=== PATIENT | male | born 1995 | race Hispanic/Latino ===

== ENCOUNTER 2024-02-28 07:09 | Emergency (ER) | payer SELFPAY ==
[2024-02-28 07:15] VITALS: BP 135/93; PULSE 74; RESP 18; TEMP 36.3; O2SAT 100
--- NOTE | 2024-02-28 08:58 | PC.NURSE ---
pt left d/t wait time
== END 2024-02-28 10:22 | disposition left against medical advice (07) ==
LOC: ANHED 09:03
PROVIDERS: PCP Internal Medicine Infectious Disease
DX: M54.2 Cervicalgia (principal); M54.9 Dorsalgia, unspecified
CPT/HCPCS: 99199

== ENCOUNTER 2024-08-09 14:12 | Outpatient (CLI) | payer SELFPAY ==
--- OUTSIDE RECORDS SUMMARY | 2024-08-09 15:30 | XMS_ITS | Clinical Summary ---
Author Organization [facility] Address [address] [place] [id number] Care Team Providers Care Brick Veneer Maker Name Role Phone No, Physician Primary Care Provider [phone] Allergies No known active allergies Medications meloxicam (MOBIC) 7.5 mg tablet Take 1 tablet (7.5 mg total) by mouth daily 20 tablet 4 Active lidocaine-menth ol 4-1 % adhesive patch,medicated Apply 1 patch topically daily 12 patch 4 Active Social History Tobacco Use Types Packs/Day Years Used Date Smoking Tobacco: Never Assessed Personal Safety Answer Date Recorded Have you ever been in or are you currently in a harmful physical or emotional relationship or is someone making you feel afraid or unsafe? Denies 03/20/2024 Sex and Gender Information Value Date Recorded Sex Assigned at Not on file Legal Sex Male 6:05 PM CDT Gender Identity Not on file Sexual Orientation Not on file Last Filed Vital Signs Vital Sign Reading Time Taken Comments Blood Pressure 118/83 03/20/2024 3:54 AM HEAD START ASSISTANT TEACHER Pulse 67 03/20/2024 3:54 AM HEAD START ASSISTANT TEACHER Temperature 36.9 C (98.5 F) 03/20/2024 3:54 AM HEAD START ASSISTANT TEACHER Respiratory Rate 16 03/20/2024 3:54 AM HEAD START ASSISTANT TEACHER Oxygen Saturation 98% 03/20/2024 3:54 AM HEAD START ASSISTANT TEACHER Inhaled Oxygen Concentration - - Weight 83.9 kg (185 lb) 03/20/2024 5:28 AM HEAD START ASSISTANT TEACHER Height 167.6 cm (5' 6 ) 03/20/2024 5:28 AM HEAD START ASSISTANT TEACHER Body Mass Index 29.86 03/20/2024 5:28 AM HEAD START ASSISTANT TEACHER Plan of Treatment Health Maintenance Due Date Last Done Comments Depression Screening 1995 Hepatitis C Screening 1995 Varicella Vaccines (1 of 2 - 13+ 2-dose series) 2008 Hepatitis B Screening 2013 Regular Well Visit/Exam 18-64 2013 Pneumococcal vaccine <65 (1 of 2 - PCV) 2014 Covid-19 Vaccine (3 - season) 2023 09/23/2020, 09/02/2020 Influenza Vaccine (#1) 2023 , 08/19/2018, 02/04/2017, Additional history exists DTaP/Tdap/Td Vaccine (2 - Td or Tdap) 06/19/2025 06/20/2015 HPV Vaccines Aged Out No longer eligi ble based on patient's age to complete this topic Insurance [facility] [facility] Care Teams Brick Veneer Maker Relationship Specialty Start Date End Date No, Physician PCP - General 09/15/23
--- OUTSIDE RECORDS SUMMARY | 2024-08-09 15:30 | XMS_ITS | Referral Summary ---
Author Organization [facility] Address [address] [place] [phone] Care Team Providers Care Refund Clerk Name Role Phone No, Physician Primary Care Provider Allergies No known active allergies Medications meloxicam [...] Comments Blood Pressure 118/83 03/20/2024 3:54 AM SALES DEVELOPMENT ASSOCIATE Pulse 67 03/20/2024 3:54 AM SALES DEVELOPMENT ASSOCIATE Temperature 36.9 C (98.5 F) 03/20/2024 3:54 AM SALES DEVELOPMENT ASSOCIATE Respiratory Rate 16 03/20/2024 3:54 AM SALES DEVELOPMENT ASSOCIATE Oxygen Saturation 98% 03/20/2024 3:54 AM SALES DEVELOPMENT ASSOCIATE Inhaled Oxygen Concentration - - Weight 83.9 kg (185 lb) 03/20/2024 5:28 AM SALES DEVELOPMENT ASSOCIATE Height 167.6 cm (5' 6 ) 03/20/2024 5:28 AM SALES DEVELOPMENT ASSOCIATE Body Mass Index 29.86 03/20/2024 5:28 AM SALES DEVELOPMENT ASSOCIATE Plan of Treatment Not on file Insurance [facility] Care Teams Refund Clerk Relationship Specialty Start Date End Date No, Physician PCP - General 09/15/23
--- OUTSIDE RECORDS SUMMARY | 2024-08-09 15:30 | XMS_ITS | Clinical Summary ---
Author Organization [facility] Address [address] [place] [address] Care Team Providers Care Zipper Machine Operator Name Role Phone Unavailable Primary Care Provider Unavailabl e Source Comments [facility],non-owned Affiliates and Associated Physician Practices is amultiple site organization consisting of ambulatory clinics and hospital sitesin [place], [place], [place]. This disclosure is being madepursuant to the Care Everywhere program and may not contain all information available regarding this patient. Last updated 18.[facility] Social History Tobacco Use Types Packs/Day Years Used Date Smoking Tobacco: Some Days Alcohol Use Standard Drinks/Week Comments Yes 0 (1 standard drink = 0.6 oz pur e alcohol) occasional Sex and Gender Information Value Date Recorded Sex Assigned at Not on file Legal Sex Male 11:46 PM CDT Gender Identity Not on file Sexual Orientation Not on file Last Filed Vital Signs Vital Sign Reading Time Taken Comments Blood Pressure 171/64 09/11/2018 11:59 PM CDT Pulse 70 09/11/2018 11:59 PM CDT Temperature 36.6 C (97.9 F) 09/11/2018 11:59 PM CDT Respiratory Rate 18 09/11/2018 11:59 PM CDT Oxygen Saturation 99% 09/11/2018 11:59 PM CDT Inhaled Oxygen Concentration - - Weight 81.6 kg (180 lb) 09/11/2018 11:59 PM CDT Height 167.6 cm (5' 6 ) 09/11/2018 11:59 PM CDT Body Mass Index 29.05 09/11/2018 11:59 PM CDT Plan of Treatment Health Maintenance Due Date Last Done Comments HIV SCREENING 2010 HEPATITIS C SCREENING 02/26/2013 DTAP/TDAP/TD VACCINES (1 - Tdap) 2014 HEPATITIS B VACCINE (1 of 3 - 19+ 3-dose series) 2014 COVID-19 VACCINE (1 - 2023-2 5 season) 2023 DEPRESSION SCREENING 04/13/2024 INFLUENZA VACCINE (Season Ended) 2024 08/19/2018, 12/22/2016 ZOSTER VACCINE (1 of 2) 2045 HIB VACCINE Aged Out No longer eligi ble based on patient's age to complete this topic HPV VACCINE Aged Out No longer eligi ble based on patient's age to complete this topic MENINGOCOCCAL (Group B) VACCINE SHARED DECISION-MAKING Aged Out No longer eligible based on patient's age to complete this topic MENINGOCOCCAL GROUPS A/C/Y/W VACCINE Aged Out No longer eligible b ased on patient's age to complete this topic PNEUMOCOCCAL VACCINE Aged Out No long er eligible based on patient's age to complete this topic Insurance [facility] [employer]Y [employer]
--- OUTSIDE RECORDS SUMMARY | 2024-08-09 15:30 | XMS_ITS | Clinical Summary ---
Author Organization 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 Gender Identity Not on file Sexual Orientation Not on file Plan of Treatment Health Maintenance Due Date Last Done Comments Hepatitis C Virus (HCV) Screening 1995 TdaP Immunization 1995 Hepatitis B Immunization (1 of 3 - 19+ 3-dose series) 2014 Influenza Immunization (#1) 2023 SARS-COV-2 Immunization (2023- season) 2023 Respiratory Syncytial Virus (RSV) Immunization (Adult) (1 - 1-dose 75+ series) 2070 Meningococcal Immunization (ACWY) Aged Out No longer eligible based on patient's age to complete this topic Pneumococcal Immunization Combined Aged Out No longer eligible based on patient's age to complete this topic Rotavirus Immunization Aged Out No lo nger eligible based on patient's age to complete this topic
--- OUTSIDE RECORDS SUMMARY | 2024-08-09 15:30 | XMS_ITS | Data Portability ---
Author Organization [facility] Address [address] [facility] [address] Assessment Encounter Date Assessment Date Assessment LastModified by Organization Details LastModified Time 11/04/2023 11/04/2023 It is unclear whether he has asthma or occupational reversible airway disease. oajao Not available 11/04/2023 18:22:08 12/21/2023 12/21/2023 It is unclear whether he has asthma or occupational reversible airway disease. oajao Not available 12/21/2023 15:49:04 Plan of Treatment Reminders Order Date Submit Date Provider Last Modified By Organization Details Last Modified Time Details Appointments None recorded. Lab TSH, ultra-sens itive, serum 2023 024 [facility], [address] [facility] [address], [address], [place], [address], 4 10:17:50 vitamin B12, serum 2023 024 [facility], [address] [address], [address], [place], [address], 4 10:17:49 influenza virus A + B + SARS-CoV-2 (COVID19) Ag panel, rapid IA, upper respirator y specimen 2023 024 [facility], [address] [facility], [place], [address], 09/09/202 4 17:47:09 Referral None recorded. Procedures None recorded. Surgeries None recorded. Imaging electromyo gram + nerve conduction study - RUE numbness [address] (Cardiology & Emg), [address], [place], [address], 5 10:38:04 MRI, wrist, w/wo contrast - [place] the [place]; Financial Assistance . 2023 024 [facility] (Admit Ed), [address] [place], [address], 5 17:15:34 PFT, complete 2023 024 [facility] (One Call Scheduling), [address] [place], [address], 4 16:46:51 MRI, upper arm, w/wo contrast - [place] the [place]; Financial Assistance 2023 024 [email or web address] (Admit Ed), [address] [place], [address], 4 12:24:28 US, upper arm - Lipoma? 2023 024 [facility] (One Call Scheduling), [address] [place], [address], 4 07:07:02 US, upper back - Lipoma? 2023 024 [facility] (One Call Scheduling), [address] [place], [address], 4 10:55:47 Medication Orders ciprofloxa frank 0.3 %-dexameth asone 0.1 % ear drops,susp ension 2024 025 [facility], [address] [place], [place], [id number], 5 17:16:13 amoxicilli n 875 mg-potassi um clavulanat e 125 mg tablet 2024 025 [facility], [address] [place] [address], [id number], 5 17:16:14 Asmanex Twisthaler 220 mcg/actuat ion(120 doses) breath activated inhlr 2023 024 [facility], [address] [place] [address], [id number], 4 17:17:20 ofloxacin 0.3 % ear drops 2023 024 [facility], [address] [place] [address], [id number], 4 09:38:30 montelukas t 10 mg tablet [address] [id number] [address] [place], [address], 4 16:50:24 albuterol sulfate HFA 90 mcg/actuat ion aerosol inhaler [address] [id number], [address] [place], [address], 4 16:52:01 Dulera 100 mcg-5 mcg/actuat ion HFA aerosol inhaler 2023 024 [id number], [address] [place], [address], 4 16:59:23 montelukas t 10 mg tablet 2023 024 [facility], [address] [place] [address], [id number], 4 16:44:47 albuterol sulfate HFA 90 mcg/actuat ion aerosol inhaler 2023 [facility], [address] [place] [address], [id number], 17:32:21 Dulera 100 mcg-5 mcg/actuat ion HFA aerosol inhaler 2023 024 [facility], [address] [place] [address], [id number], 09:38:30 Vitamin D3 50 mcg (2,000 unit) tablet 2023 [id number], [address] [facility], [place], [place], [id number], 16:41:05 Patient TargetsNo targets recorded. 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) PFTs Montelukast MRI Dulera Follow up in 4 weeks oajao Not available 11/04/2023 18:22:12 12/21/2023 [id number] upper respirator y infection (cold): care instructions oajao Not available 12/21/2023 15:48:11 Tylenol Robitussin Labs PFT report Continue the current regimen Follow up in 6 months and PRN oajao Not available 12/21/2023 16:03:25 02/11/2024 [id number] learning about asthma oajao Not available 02/11/2024 18:34:17 neuropathic pain : care instructions oajao Not available 02/11/2024 16:55:34 Stop Dulera Star t Asmanex once a day EMG/NCS Labs Follow up in 6 weeks oajao Not available 02/11/2024 16:56:10 06/20/2024 [id number] A healthy lifestyle: care instructions oajao Not available 06/20/2024 16:26:51 learning about healthy weight oajao Not available 06/20/2024 16:26:32 Augmentin/Ciprof l oxacin-DXM ENT if the buzzing/Tinnitus persist oajao Not available 06/20/2024 18:20:24 Reason for Referral None Reported. Results Created Date Observation Date Name Description Value Unit Range Abnormal Flag Note LastModifiedBy Organization Detail LastModifiedTime 02/11/2002/12/2024 VITAM IN B12 vitamin B12 453 pg/mL 232-12 45 Not Available [facility] ([facility]) [address] [place], [address], 02/12/2024 10:17:49 02/11/20 24 02/12/2024 TSH TSH 2.230 uIU/m L 0.450- 4.500 Not Available [facility] ([facility]) [address] [place], [address], 02/12/2024 10:17:50 06/04/19 24 06/03/2023 US, upper back No observ ation record ed. [facility] [address] [place], [address], 11/04/2023 16:29:04 06/09/19 24 06/03/2023 US, upper arm No observ ation record ed. [facility] (One Call Scheduling) [address] [place], [address], 11/04/2023 16:29:04 09/20/19 24 09/18/2023 MRI, upper arm, w/o contr ast No observ ation record ed. [facility] (One Call Scheduling) [address] [place], [address], 11/04/2023 16:29:04 11/05/19 24 10/12/2023 XR, chest , 2 view No observ ation record ed. [facility] [address] [place], [address], 12/21/2023 15:47:28 12/21/19 24 12/17/2023 PFT, compl ete No observ ation record ed. [facility] (One Call Scheduling) [address] [place], [address], 02/11/2024 16:35:33 12/28/19 24 12/17/2023 PFT, compl ete No observ ation record ed. [facility] [address] [place], [address], 02/11/2024 16:35:33 Result Notes None recorded. 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 Not Available [facility] 4 15:18:27 Vitamin D deficiency 50438844 Active 2023 Not Available [facility] 4 15:18:27 Uncomplicated asthma 008035082 Active Titi Galan MD Attn: Accounting ,[address] [place], [address] , [facility] 4 15:48:21 Asthma 752127243 Active 2023 Titi Galan MD Attn: Accounting ,[address] [place], [address] , [facility] 4 18:34:14 Migraine 78540546 Active Not Available [facility] 4 15:18:28 Abdominal pain 06532947 Active Not Available [facility] 4 15:18:27 Problem Notes None recorded. Procedures Surgical History None recorded. Imaging Results Imaging Date Name Status LastModified by Organiz [facility] Details LastModified Time 06/03/2023 US, upper back completed [facility] [address] [place], [address], 11/04/2023 16:29:04 06/03/2023 US, upper arm completed [facility] (One Call Scheduling) [address] [place], [address], 11/04/2023 16:29:04 09/18/2023 MRI, upper arm, w/o contrast completed [facility] (One Call Scheduling) [address] [place], [address], 11/04/2023 16:29:04 10/12/2023 XR, chest, 2 view completed [facility] [address] [place], [address], 12/21/2023 15:47:28 12/17/2023 PFT, complete completed [facility] (One Call Scheduling) [address] [place], [address], 02/11/2024 16:35:33 12/17/2023 PFT, complete completed [facility] [address] [place], [address], 02/11/2024 16:35:33 Procedure Notes None recorded. Medical Equipment None Reported. Allergies Allergen ID Allergen Name Allergen Category Reaction Reaction Severity Criticality Documentation Date Start Date Code Code System Note Provider Name and Address Organization Details Recorded Time 805162 No known allergy (situatio n) Not available Not available Not available Not available 11/04/2023 94448 6003 SNOMED Not Available Not Available Not Available No known drug allergies Medications Name Sig Start Date Stop Date Status Note LastModified by Organization Details LastModified Time tetracycl ine 500 mg capsule Take 1 capsule 4 times a day by oral route for 14 days. 12/22 completed Not Available Not Available Not Available ibuprofen 800 mg tablet 07/02 completed Not Available Not Available Not Available benzonata te 200 mg capsule TAKE 1 CAPSULE BY MOUTH THREE TIMES DAILY AROUND THE CLOCK FOR 5 DAYS 11/03 completed Not Available Not Available Not Available clarithro mycin 500 mg tablet Take 1 tablet every 12 hours by oral route for 14 days. 07/02 completed Not Available Not Available Not Available sumatript an 100 mg tablet Take 100 mg every day by oral route as needed for 9 days. 07/11 completed Not Available Not Available Not Available hydrocodo ne 5 mg-acetam inophen 325 mg tablet 07/02 completed Not Available Not Available Not Available prednison e 20 mg tablet TAKE 1 TABLET BY MOUTH EVERY DAY FOR 5 DAYS 11/03 completed Not Available Not Available Not Available metronida zole 250 mg tablet Take 1 tablet 4 times a day by oral route for 14 days. 12/22 completed Not Available Not Available Not Available metronida zole 500 mg tablet Take 1 tablet every 12 hours by oral route for 14 days. 07/02 completed Not Available Not Available Not Available amoxicill in 500 mg tablet Take 2 tablets every 12 hours by oral route for 14 days. 07/02 completed Not Available Not Available Not Available meloxicam 7.5 mg tablet TAKE 1 TABLET BY MOUTH DAILY 11/03 completed Not Available Not Available Not Available rifampin 300 mg capsule 04/03 completed Not Available Not Available Not Available ofloxacin 0.3 % ear drops INSTILL 10 DROPS INTO THE LEFT EAR EVERY DAY FOR 7 DAYS FOR INFECTIO N 02/10 completed Not Available Not Available Not Available amoxicill in 875 mg tablet 07/02 completed Not Available Not Available Not Available amitripty line 10 mg tablet Take 1 tablet every day by oral route in the morning for 30 days. 04/03 completed Not Available Not Available Not Available pantopraz ole 40 mg tablet,de layed release Take 1 tablet every day by oral route as directed for 30 days. 09/24 completed Not Available Not Available Not Available neomycin- polymyxin -dexameth 3.5 mg/mL-10, 000 unit/mL-0 .1% eye drops LOCATION : BOTH EYES. 1 DROP TWICE DAILY IN BOTH EYES 7-10 DAYS 11/03 completed Not Available Not Available Not Available Pepto-Bis mol 262 mg tablet Take 2 tablets 4 times a day by oral route for 14 days. 12/22 completed Not Available Not Available Not Available omeprazol e 20 mg capsule,d elayed release TAKE 1 CAPSULE BY MOUTH TWICE DAILY 07/02 completed Not Available Not Available Not Available monteluka st 10 mg tablet TAKE ONE TABLET BY MOUTH EVERY MORNING FOR BREATHIN G active Not Available Not Available No t Available methylpre dnisolone 4 mg tablets in a dose pack PLEASE SEE ATTACHED FOR DETAILED DIRECTIO NS 06/20 completed Not Available Not Available Not Available albuterol sulfate HFA 90 mcg/actua tion aerosol inhaler INHALE TWO PUFFS BY MOUTH EVERY 4 HOURS NEEDED FOR BREATHIN G active Not Available Not Available No t Available amoxicill in 875 mg-potass ium clavulana te 125 mg tablet TAKE ONE TABLET BY MOUTH EVERY TWELVE HOURS FOR 5 DAYS active Not Available Not Available No t Available ciproflox acin 0.3 %-dexamet hasone 0.1 % ear drops,[employer] pension INSTILL FOUR DROPS IN LEFT EAR TWICE DAILY EVERY MORNING & EVENING FOR 7 DAYS active Not Available Not Available No t Available salicylic acid 6 % lotion 07/02 completed Not Available Not Available Not Available Asmanex Twisthale r 220 mcg/actua tion(120 doses) breath activated inhlr Inhale 1 puff every day by inhalati on route as directed for 30 days, for Asthma. 2023 active Not Available Not Available Not Avai lable Asmanex Twisthale r 220 mcg/actua tion(60 doses) breath activated inhalr INHALE 1 PUFF ONCE DAILY DIRECTED FOR ASTHMA active Not Available Not Available No t Available omeprazol e 20 mg tablet,de layed release Take 1 tablet twice a day by oral route for 14 days. 12/22 completed Not Available Not Available Not Available cholecalc iferol (vitamin D3) 50 mcg (2,000 unit) tablet TAKE 1 TABLET BY MOUTH EVERY DAY DIRECTED FOR 30 DAYS 11/03 completed Not Available Not Available Not Available salicylic acid 26 % topical liquid Apply BID to the lateral aspect of the right 4th toe 2016 active Not Available Not Available Not Avai lable Dulera 100 mcg-5 mcg/actua tion HFA aerosol inhaler INHALE TWO PUFFS BY MOUTH TWICE DAILY EVERY MORNING & EVERY EVENING FOR BREATHIN G 02/10 completed Headache sChanged to Asmanex Not Available Not Available Not Available Compact Space Chamber USE as directed with inhaler active Not Available Not Available No t Available Vitals Date Recorded Body height Body mass index (BMI) Body weight Respiratory rate Body temperature Heart rate Oxygen saturation Oxygen saturation in Arterial blood by Pulse oximetry Systolic blood pressure Diastolic blood pressure Provider Name and Address Organization Details Last Updated DateTime 4 175.26 cm 28.2 kg/m2 60632.1 4 g 16 /min 98.3 [degF] 74 /min 99 % 99 % 118 mm[Hg] 76 mm[Hg] Prince Red MA [facility] 4 16:08:07 Date Recorded Body height Body mass index (BMI) Body weight Heart rate Oxygen saturation Oxygen saturation in Arterial blood by Pulse oximetry Respiratory rate Systolic blood pressure Diastolic blood pressure Provider Name and Address Organization Details Last Updated DateTime 4 175.26 cm 27.8 kg/m2 39485.3 7 g 76 /min 98 % 98 % 14 /min 124 mm[Hg] 80 mm[Hg] Crys Sue MA [facility] 4 16:26:40 Date Recorded Body height Body mass index (BMI) Body weight Heart rate Oxygen saturation Oxygen saturation in Arterial blood by Pulse oximetry Respiratory rate Body temperature Systolic blood pressure Diastolic blood pressure Provider Name and Address Organization Details Last Updated DateTime 4 175.26 cm 28.1 kg/m2 03835.9 9 g 74 /min 98 % 98 % 16 /min 98.4 [degF] 120 mm[Hg] 76 mm[Hg] Crys Sue MA [facility] 4 15:30:19 Date Recorded Body height Body mass index (BMI) Body weight Heart rate Oxygen saturation Oxygen saturation in Arterial blood by Pulse oximetry Respiratory rate Systolic blood pressure Diastolic blood pressure Provider Name and Address Organization Details Last Updated DateTime 4 175.26 cm 28.1 kg/m2 13429.3 5 g 72 /min 98 % 98 % 14 /min 120 mm[Hg] 84 mm[Hg] [facility] 4 16:10:35 Date Recorded Body height Body mass index (BMI) Body weight Respiratory rate Heart rate Oxygen saturation Oxygen saturation in Arterial blood by Pulse oximetry Systolic blood pressure Diastolic blood pressure Provider Name and Address Organization Details Last Updated DateTime 5 175.26 cm 27.9 kg/m2 46405.6 8 g 16 /min 88 /min 98 % 98 % 120 mm[Hg] 86 mm[Hg] Crys Sue [place] [facility] 5 16:05:09 Social History Question Answer Notes LastModified by YuMe ion Details LastModified Time Tobacco Smoking Status Former Smoker July SVETLANA Hernandez [facility] 06/20/2015 14:21:54 Do You Have An Advance Directive? No Information not available 06/20/2015 What Is Your Level Of Alcohol Consumption? None Information not available 06/20/2015 What Is Your Level Of Caffeine Consumption? None Information not available 06/20/2015 How Much Tobacco Do You Chew? None Information not available 06/20/2015 Are There Any Guns Present In Your Home? No Information not available 06/20/2015 Hard Of Hearing Or Deaf In One Or Both Ears? No Information not available 06/20/2015 Legally Blind In One Or Both Eyes? No Information no t available 06/20/2015 What Was The Date Of Your Most Recent Tobacco Screening? 02/11/2024 Information not available 02/11/2024 What Is Your Current Pack Years? 10packyears Information not available 04/23/2023 Performs Monthly Self-breast Exam? No Information no t available 06/20/2015 Seat Belts Used Routinely Yes Information not available 06/20/2015 Smoke Alarm In Home Yes Information not available 06/20/2015 At What Age Did You Start Smoking Tobacco? 23 Information not available 04/23/2023 How Much Tobacco Do You Smoke? No Information not available 11/10/2016 Do You Feel Stressed (tense, Restless, Nervous, Or Anxious, Or Unable To Sleep At Night)? [id number] Only At [place] Information not available 05/19/2023 Do You Use Any Illicit Or Recreational Drugs? No Information not available 04/23/2023 Do You Use Sunscreen Routinely? No Information not available 06/20/2015 Has Tobacco Cessation Counseling Been Provided? Yes Information not available 04/23/2023 On What Date Was Tobacco Cessation Counseling Provided? 05/19/2023 Information not available 05/19/2023 How Many Years Have You Smoked Tobacco? 2 Information not available 04/23/2023 Do You Or Have You Ever Used Any Other Forms Of Tobacco Or Nicotine? No Information not available 04/23/2023 Sex: Unknown Functional Status None recorded. Mental Status None recorded. Family History Relationship Description Onset Age of this Age Resolved Age Notes LastModified by Organization Details LastModified Time Father No current problems or disability oajao Not available 04/23 14:13:15 Mother No current problems or disability oajao Not available 04/23 14:13:15 Mother Diabetes mellitus oajao Not available 2023 14:13:24 Medical History Condition Response Coronary Artery Disease N Other N High Blood Pressure N Atrial Fibrillation N Kidney or Bladder Problems N Thyroid Problems N GI Problems N Depression N COPD N Blood Clots N Skin Problems N Anemia N Heart Attack (SD) N Anxiety Disorder N Diabetes N Muscle, Joint, or Bone Problems N Seizures/Epilepsy N Acid Reflux (GERD) N Cancer N Stroke N Asthma N Allergies N High Cholesterol N Hepatitis N Liver Disease N Headaches N Heart Failure N Osteoporosis N Immunizations Vaccine Type Date Status Note Provider Nam e and Address Organization Details Recorded Time Tdap 06/20/2015 completed Not Available [facility] 04/30/2019 02:30:20 Influenza, split virus, quadrivalent, PF 02/04/2017 completed Not Available [facility] 4 15:18:28 COVID-19, mRNA, LNP-S, PF, 30 mcg/0.3 mL dose 09/02/2020 completed Not Available [facility] 4 15:18:28 COVID-19, mRNA, LNP-S, PF, 30 mcg/0.3 mL dose 09/23/2020 completed Not Available [facility] 4 15:18:28 COVID-19, mRNA, LNP-S, PF, 30 mcg/0.3 mL dose, thee-sucrose 11/02/2021 completed Not Available [facility] 024 15:18:28 Influenza, split virus, quadrivalent, PF 12/22/2016 completed Not Available [facility] 0 02:42:01 Influenza, split virus, quadrivalent, PF 08/19/2018 completed Not Available [facility] 0 02:49:50 Influenza, split virus, quadrivalent, PF 04/23/2023 completed Titi Galan MD Attn: Accounting,[address] [place], [address], [facility] 04/23/2023 21:08:22 Past Encounters Encounter ID Performer Location Encounter Start Date Encounter Closed Date Diagnosis/Indication Diagnosis SNOMED-CT Code Diagnosis ICD10 Code Diagnosis Note [id number] MD Ish Brown (Adult Med) [address] [place] [address] [phone] 06/20/2015 14:01:16 06/20/2015 14:59:50 General examination of patient 348162501 Z00.8 20 y/o HM who presents to this office as a new patient, there is a prior history of a hematologi flo malignancy treated at age 9 in [place] Migraine 10736553 G43.90 9 Recent ER visit where he was diagnosed with Migraine STARR, he may have had a CT scan and labs Abdominal pain 56024764 R10.9 Possibly from NSAIDS, he was told to stop the OTC medication s Active or passive immunization 839044256 Z23 [id number] MD Ish Brown (Adult Med) [address] [place] [address] [phone] 11/10/2016 12:27:13 11/10/2016 17:46:58 Adult health examination 059252482 Z00.01 Migraine 25113815 G43.90 9 Migraine vs Tension Abdominal pain 70574384 R10.9 His abdominal pain now appears to be in the lower quadrants/ flanks Inactive tuberculosis 11 164912 R76.11 [id number] MD Ish Brown (Adult Med) [address] [place] [address] [phone] 12/22/2016 12:07:11 12/23/2016 12:11:06 Disorder of lipid metabolism 162109055 E78.9 Helicobact er detected in blood 892224258 R89.5 S/p treatment, MINA needed Needs infl uenza immunization 275160681 Z23 [id number] MD Ish Brown (Adult Med) [address] [place] [address] [phone] 04/03/2017 15:02:58 04/03/2017 15:39:04 Corns and callus 933393885 L84 He has tried two different agents OTC Melanocytic nevus 582140 001 D22.9 Helicobact er-associat ed gastritis 33422238 B96.81 Continue Omeprazole 20mg po bid Amoxicilli n 1 gm po bid Clarithrom ycin 500mg po bid Skin - rufina ign mole and nevus 764281782 D22.9 Noted since the age of 8, it is however getting bigger. MD Ish Brown (Adult Med) [address] [place] [address] [phone] 07/02/2017 12:28:20 07/02/2017 12:58:14 Abdominal pain 87379897 R10.9 There is recurrence of his abdominal pain, he has been treated for H. pylori gastritis and the repeat UBT was negative. His CT scan was unremarkab le, he should start the Pantoprazo le that was prescribed in the ER and see GI. Skin - rufina ign mole and nevus 740494112 D22.9 Extracted by the dermatolog ist Lipoma 58787222 D17.9 [id number] MD Ish Brown (Adult Med) [address] [place] [address] [phone] 08/13/2017 12:14:12 08/13/2017 12:47:13 Abdominal pain 05835165 R10.9 There is recurrence of his abdominal pain, he has been treated for H. pylori gastritis and the repeat UBT was negative. His CT scan was unremarkab le, he should start the Pantoprazo le and see GI in the office. Duodenitis 11575288 K29. 80 Stress 17939961 Z73.3 [id number] MD Ish Brown (Adult Med) [address] [place] [address] [phone] 09/24/2017 12:10:28 09/24/2017 17:10:00 Venereal disease screening 882397812 Z11.3 [id number] MD Ish Brown (Adult Med) [address] [place] [address] [phone] 09/30/2017 12:19:50 09/30/2017 15:10:14 Herpes simplex 56947331 B00.9 Detailed discussion , he has no symptoms. [id number] MD Ish Brown (Adult Med) [address] [place] [address] [phone] 08/19/2018 16:14:30 08/19/2018 17:08:56 Administration of influenza vaccine 16450132 Z23 Atypical chest pain 1025 17399 R07.89 Dizziness 449866098 R42 Weight gain 1531570 R63. 5 [id number] MD Ish Brown (Adult Med) [address] [place] [address] [phone] 04/23/2023 13:55:15 04/23/2023 14:37:20 Administration of influenza vaccine 65498208 Z23 Persistent cough 9935475 02 R05.3 Otitis externa 4729459 H 60.92 General ex amination of patient 509059592 Z00.01 28 y/o HM who returns, he has a history of a hematologi flo malignancy treated at age 9 in [place]. Body mass index 25-29 - overweight 305516241 Z68.27 Overweight 228492398 E66 .3 Weight loss 99659103 R63 .4 History of malignant hematologic neoplasm 400663656 Z85.79 [id number] MD Ish Brown (Adult Med) [address] [place] [address] [phone] 05/19/2023 15:53:10 05/20/2023 12:55:07 Disorder of lipid metabolism 607645671 E78.9 Discussed Vitamin D deficiency 347 83575 E55.9 Skin lesion 29851941 L98 .9 Lipomas? [id number] MD Ish Brown (Adult Med) [address] [place] [address] [phone] 11/04/2023 16:18:48 11/10/2023 10:30:27 Mass of wrist 933655512 R22.33 US 06/03/2023, bilateral masses Mass of upper limb 35731 5008 R22.31 US 06/03/2023, bilateral masses Occupation al exposure to risk factor [id number] 5107693 Z57.9 Airways ob struction reversible 866064038 J98.8 Continue AlbuterolS tart Montelukas t, neuropsych iatric side effects were discussed. Start Dulera PFTS [id number] MD Ihs Brown (Adult Med) [address] [place] [address] [phone] 12/21/2023 15:18:25 12/22/2023 10:40:14 Acute upper respiratory infection 52034192 J06.9 Airways ob struction reversible 758591705 J98.8 Asthma ? OV 11/04/2023 ontinue AlbuterolS tart Montelukas t, neuropsych iatric side effects were discussed. Start Dulera PFTS Otitis externa 0455098 H 60.92 [id number] MD Ish Brown (Adult Med) [address] [place] [address] [phone] 02/11/2024 16:02:24 02/12/2024 15:53:23 Airways obstruction reversible 908794719 J98.8 The PFTS were suggestive of AsthmaStop DuleraTry Asmanex OV 12/21/2023s thma ? OV 11/04/2023 ontinue AlbuterolS tart Montelukas t, neuropsych iatric side effects were discussed. Start Dulera PFTS Neuropathy 693684215 G62 .9 Cervical radiculopa thy vs neuropathy Asthma 983757600 J45.90 9 [id number] MD Ish Brown (Adult Med) [address] [place] [address] [phone] 06/20/2024 15:43:01 06/21/2024 10:22:06 Body mass index 25-29 - overweight 546290887 Z68.27 Overweight 075522168 E66 .3 Otitis ext mor of left ear 9848021993 313738 H60.92 Health Concerns Section Related Observation LastModified by Organization Detai ls LastModified Time None Recorded Concern Status LastModified by Organization Details LastModified Time None Recorded Advance Directives Directive N: Payers Encounter Date Sequence Insurance Name Policy Number Policy Walker Covered Member ID Walker Member ID Guarantor Name 05/19/2023 1 [employer] ([employer]) [id number] Heather Shah Mejia [id number] Jn Apollo Waddell 11/04/2023 1 [employer] [id number] Heather Shah Mejia [id number] Jn Apollo Waddell 11/04/2023 2 [employer] [id number] Jn Apollo Waddell [id number] Jn Apollo Waddell 12/21/2023 1 [employer] ([employer] [id number] Heather Shah Mejia [id number] Jn Apollo Waddell 12/21/2023 2 [employer] [id number] Jn Apollo Waddell [id number] Jn Apollo Waddell 02/11/2024 1 [employer] ([employer]) [id number] Heather Shah Mejia [id number] Jn Apollo Waddell 02/11/2024 2 [employer] [id number] Jn Apollo Waddell [id number] Jn Apollo Waddell 06/20/2024 1 [employer] ([employer] [id number] Heather Santoyoa Mejia [id number] Jn Hickmanentes Notes Date Note Type Note Provider Name and Address Organization Details Recorded Time 05/19/2023 text/html It was to follo w up, the blood test and all that I have on my back on my... Mr Waddell is here to review his lab results, he has chronic lesions on his forearms and back. Titi Galan MD Attn: [address] [place], [address], [place] [facility] 05/19/2023 16:39:44 11/04/2023 text/html Follow up I we ar one now Mr Apollo denies any history of childhood asthma, recently he has been having nocturnal wheezing and things got worse recently prompting a ER evaluation on 10/12/2023. His CXR was negative and he was discharged with a course of steroids, an albuterol inhaler and he has also been using Primatene Mist. He has not noticed any major improvement. He works as a final touch up painter and he now uses a mask/respirator when he is using a paint sprayer but not when he is using a paint brush. On his 05/19/2023 visit, an US of his back and an US of upper arms were ordered. The US done on 06/03/2023 suggested masses and possible Lipomas and a MRI was ordered. The MRI done on 09/18/2023 was abnormal and a MRI with and without contrast of the right forearm and wrist was recommended. Titi Galan MD Attn: [address] [place], [address], [facility] 11/04/2023 18:23:47 12/21/2023 text/html Better Just yesterday, I was getting some body ache, runny nose, headache and sorethroat.. His asthma is better with the addition of Singulair. Influenza like symptoms since yesterday, a family member also has similar symptoms. No fever or SOB. Titi Galan MD Attn: [address] [place], [address], [facility] 12/21/2023 16:42:20 02/11/2024 text/html Asthma F/UReport ed bypatient.Quality:sym ptoms worse during the day Context:improving It is working but it is causing me a lot of headache Do you know what ids good for circulation, my arm is numb Mr Waddell has noticed an occipital headache, which he feels is from the Dulera. His Asthma has improved with Albuterol, Dulera and Montelukast PRN. He wakes up with RUE numbness every now and then and sleeps on his side. Titi Galan MD Attn: [address] [place], [address], [facility] 02/11/2024 18:34:50 06/20/2024 text/html EaracheReported bypatient.Location:[facility] Quality:burning Severity:improving Duration:started: Timing:better Modifying Factors:hurts to lie on, or pull on ear Associated Symptoms:no discharge from the ears; no hearing loss; no nose/sinus problems; no popping noise in the ears; no ringing in the ears I was doing the Hammer Toni He was using a Toni Hammer, he heard a pop in his left ear. He was seen at and prescribed a regimen which helped. He then started using an old but unexpired Ofloxacin ear drops. The intermittent mild buzzing also persists Titi Galan MD Attn: [address] [place], [address], [facility] 06/20/2024 18:20:43
== END 2024-08-09 14:13 | disposition home or self-care (01) ==
LOC: ANHAUDIO 14:13
PROVIDERS: PCP Internal Medicine Infectious Disease; Visit Provider Otolaryngology
DX: H90.42 Sensorineural hearing loss, unilateral, left ear, with unrestricted hearing on the contralateral side (principal)
CPT/HCPCS: 92557; 92567